=== PATIENT | female | born 1940 | race Two or more races ===

== ENCOUNTER 2018-07-04 12:20 | Outpatient (CLI) | payer MEDICARE, OTHER | END 2018-07-04 23:59 | disposition home or self-care (01) | LOC: WOU 12:20 | PROVIDERS: ATTEND Podiatrist Foot & Ankle Surgery | DX: I87.2 Venous insufficiency (chronic) (peripheral) (principal); L97.328 Non-pressure chronic ulcer of left ankle with other specified severity; R60.0 Localized edema; M25.572 Pain in left ankle and joints of left foot; I48.91 Unspecified atrial fibrillation | CPT/HCPCS: A6402; G0463; Z7610 ==